=== PATIENT | male | born 1940 | race American Indian/Alaskan Native ===

== ENCOUNTER 2018-01-02 15:49 | Emergency (ER) | payer MEDICARE, MEDICAID ==
[2014-09-23 11:23] VITALS: BMI 23.2
[2018-01-02 16:46] LABS: BASO # 0.1 K/uL (0.0-0.2); BASO % 1.2 % (0.0-2.0); EOS # 0.1 K/uL (0.0-0.7); EOS % 1.5 % (0.0-4.0); HEMOGLOBIN 14.8 g/dL (12.0-18.0); LYMPH # 1.2 K/uL (1.0-4.3); LYMPH % 19.6 % (20.0-40.0); MEAN CELL VOLUME 93.6 fL (80.0-94.0); MEAN CORPUSCULAR HEMOGLOBIN 30.7 pg (27.0-31.0); MEAN CORPUSCULAR HGB CONC 32.8 g/dL (33.0-37.0); MEAN PLATELET VOLUME 8.2 fL (7.2-11.7); MONO # 0.6 K/uL (0.0-0.8); MONO % 9.5 % (0.0-10.0); NEUT # 4.2 K/uL (1.8-7.0); NEUT % 68.2 % (50.0-75.0); NRBC % 0.1 % (0.0-2.0); RBC 4.84 Mil/uL (4.40-5.90); RED CELL DISTRIBUTION WIDTH 13.7 % (11.5-14.5); WHITE BLOOD COUNT 6.2 K/uL (4.8-10.8)
[2018-01-02 16:53] LABS: PROTHROMBIN TIME 11.1 SECONDS (9.7-12.2)
[2018-01-02 16:58] LABS: ALB/GLOB RATIO 1.1 (1.0-2.1); ALBUMIN 3.9 g/dL (3.5-5.0); CALCIUM 9.2 mg/dl (8.6-10.4)
--- NOTE | 2018-01-02 17:12 | C.PDOC ---
History Of Present Illness Pt was sent in by his PMD requesting that pt be seen by Dr. Hansen. Pt c/o right foot/leg pain that is worse with walking. Time Seen by Provider: 01/02/18 16:16 Chief Complaint (Nursing): Lower Extremity Problem/Injury History Per: Patient Onset/Duration Of Symptoms: Days (years), Intermittent Episodes, Gradual Current Symptoms Are (Timing): Worse Severity: Moderate Additional History Per: Prior Records Past Medical History Reviewed: Historical Data, Nursing Documentation, Vital Signs Vital Signs: Last Vital Signs Temp Pulse Resp 20 01/02/18 15:59 BP 118/73 01/02/18 15:59 Pulse Ox - Medical History PMH: HTN Surgical History: Pacemaker - [facility] Procedures CATARAC PHACOEMULS/ASPIR (10/09/03) CLOSED ENDOSCOPIC BIOPSY OF LARGE INTESTINE (09/24/14) COLONOSCOPY (12/29/03) ENDOSC POLYPECTOMY OF LG INTEST (09/24/14) INSERT LENS AT CATAR EXT (10/09/03) Family History: States: Unknown Family Hx - Social History Hx Tobacco Use: No (quit 10 years ago) Hx Alcohol Use: Yes (1 PINT/WEEK) Hx Substance Use: No - Immunization History Hx Tetanus Toxoid Vaccination: No Hx Influenza Vaccination: No Hx Pneumococcal Vaccination: No Review Of Systems Except As Marked, All Systems Reviewed And Found Negative. Constitutional: Negative for: Fever, Weakness Cardiovascular: Negative for: Chest Pain Respiratory: Negative for: Shortness of Breath, Hemoptysis Gastrointestinal: Negative for: Vomiting, Abdominal Pain Musculoskeletal: Positive for: Leg Pain (right), Foot Pain (right). Negative for: Neck Pain, Back Pain Neurological: Negative for: Weakness, Numbness Physical Exam - Physical Exam Appears: Non-toxic, No Acute Distress Skin: Normal Color, Warm, Dry, No Rash Head: Atraumatic, Normacephalic Eye(s): bilateral: Normal Inspection, PERRL, EOMI Neck: Normal ROM, Supple Cardiovascular: Rhythm Regular Respiratory: Normal Breath Sounds, No Accessory Muscle Use Gastrointestinal/Abdominal: Soft, No Tenderness Back: No CVA Tenderness, No Vertebral Tenderness Extremity: Normal ROM, No Calf Tenderness, No Deformity, No Swelling Extremity: Bilateral: Normal Color And Temperature Pulses: Left Dorsalis Pedis: Normal, Right Dorsalis Pedis: Decreased (but good right PT pulse) Neurological/Psych: Oriented x3, Normal Motor, Normal Sensation ED Course And Treatment - Laboratory Results Result Diagrams: 01/02/18 16:43 01/02/18 16:43 Lab Interpretation: Abnormal Interpretation Of Abnormal: Renal insufficiency. ECG: Interpreted By Me, Viewed By Me ECG Rhythm: Sinus Rhythm, 1st Degree HB, Nonspecific Changes Rate From EC - Physician Consult Information Physician Contacted: Anival Hansen Jr. Outcome Of Conversation: He evaluated pt in the ED. He states if renal function is normal to obtain a CTA of LEs, otherwise pt can be discharged home to f/up in his office. Disposition Counseled Patient/Family Regarding: Studies Performed, Diagnosis, Need For Followup, Rx Given - Disposition Referrals: Anival Hansen Jr., MD [Staff Provider] - Disposition: HOME/ ROUTINE Disposition Time: 17:16 Condition: STABLE Additional Instructions: Follow up with Dr. Hansen for further evaluation and treatment. Return to the ER if you develop redness, swelling, weakness, numbness, chest pain, shortness of breath, worsening of symptoms or if you have any other concerns. Prescriptions: traMADol/Acetaminophen [Ultracet 325 MG-37.5 MG] 1 tab PO Q4 PRN #30 tab PRN Reason: Pain Instructions: Peripheral Vascular (Arterial) Disease (DC) - Clinical Impression Clinical Impression: Claudication of right lower extremity
[2018-01-02 17:24] VITALS: BP 114/68; PULSE 78; RESP 18; TEMP 98; O2SAT 99
--- NOTE | 2018-01-03 12:09 | CARD ---
APPROVED REPORT EKG Measurement Heart [id number] <Conclusion> Sinus rhythm with 1st degree AV block Left ventricular hypertrophy with QRS widening and repolarization abnormality Abnormal ECG
== END 2018-01-02 17:34 | disposition home or self-care (01) ==
LOC: C.ER 15:49
DX: I73.9 Peripheral vascular disease, unspecified (principal); I10 Essential (primary) hypertension